=== PATIENT | female | born 1950 | race Caucasian/White ===

== ENCOUNTER 2016-03-29 02:30 | Emergency (ER) | payer SELFPAY ==
[2016-03-29] MEDS ORDERED: Triamcinolone 40 MG/ML VIAL ONE (03:12)
== END 2016-03-29 03:36 | disposition home or self-care (01) ==
LOC: BURERS 02:30
DX: J30.1 Allergic rhinitis due to pollen (principal); L29.9 Pruritus, unspecified; I10 Essential (primary) hypertension; F32.9 Major depressive disorder, single episode, unspecified
CPT/HCPCS: 96372; J3301

== ENCOUNTER 2016-04-04 14:05 | Emergency (ER) | payer SELFPAY ==
[2016-04-04] MEDS ORDERED: Ondansetron HCl/PF 4 MG/2 ML Vial ONE (14:17)
[2016-04-04] MEDS ORDERED: Pantoprazole 40 MG VIAL ONE (14:17)
[2016-04-04 14:42] LABS: ALT (SGPT) 26 U/L (0-55); AST (SGOT) 29 U/L (5-34); Alkaline Phosphatase 92 U/L (40-150); Anion Gap 15 mmol/L (10-20); BUN (Urea Nitrogen) 21 mg/dL (9.8-20.1); Bilirubin, Total 1.5 mg/dL (0.2-1.2); Calc. Creatinine Clearance 0 mL/min (70-130); Calcium 7.9 mg/dL (7.8-10.44); Carbon Dioxide 23 mmol/L (23-31); Chloride 97 mmol/L (98-107); Estimated GFR-MDRD 62; Globulin 2.8 g/dL (2.4-3.5)
[2016-04-04 14:44] LABS: Troponin I 0.025 ng/mL (< 0.028)
[2016-04-04 14:46] LABS: Band 21 % (5-11); Hematocrit 36.1 % (36.0-47.0); Mean Platelet Volume 8.9 fL (7.4-10.4); Neutrophil 68 % (42-75); Red Blood Cell (RBC) Count 4.11 mill/uL (4.20-5.40); White Blood Cell (WBC) Count 16.3 thou/uL (4.8-10.8)
[2016-04-04] MEDS ORDERED: Azithromycin 500 MG VIAL ONE (15:57)
--- NOTE | 2016-04-04 16:27 | CT ---
CT ANGIO CHEST: Date: 04/04/[address] of the chest was performed emergently for evaluation of chest pain and an elevated D-Dimer . Axial slices were acquired after giving a bolus of IV contrast. Oblique coronal reformations and c oronal reformations were done through the pulmonary arteries afterwards. FINDINGS: There is excellent opacification of the pulmonary arteries. There were no filling defects to suggest emboli. The aorta shows no aneurysm or dissection. The ascending aorta is slightly wide at 3.8 cm. The main finding on the study is multiple patchy parenchymal densities throughout the lungs bilatera lly. Some are very definitely mass-like and others are a little more infiltrative. There is also med iastinal adenopathy, particularly in the subcarinal region and the lower paratracheal areas, particu larly on the right. Metastatic disease would be a primary consideration. An unusual infection would also be in the differential with this appearance. There are no effusions. The scans went several slices into the upper abdomen. I do not see any hepatic masses in the visuali zed portions of the liver. There is some fatty infiltration of the liver. The spleen is borderline i n size at just over 13.0 cm. The left adrenal gland is a little bulbous, but I cannot definitely def ine a mass in it on this exam. IMPRESSION: Multiple patchy parenchymal densities throughout the lungs, some of which are mass-like and others w hich are infiltrative, along with mediastinal adenopathy. Metastatic disease is the primary consider ation, but an unusual infection would also be considered in the differential. Pulmonary referral is recommended. POS: HOME
--- NOTE | 2016-04-04 20:16 | RAD ---
PORTABLE CHEST 04/04/16 An AP portable film at 1411 shows a normal sized heart. There are multiple parenchymal opacities, ma ny of which are mass-like, in this patient's lungs. There are more on the right than the left. Metas tatic disease is the most likely diagnosis. Infection is less likely. No large effusions are seen. IMPRESSION: Multiple pulmonary parenchymal densities. POS: HOME
== END 2016-04-04 16:20 | disposition short-term general hospital (02) ==
LOC: BURERS 14:05
DX: J18.9 Pneumonia, unspecified organism (principal); C34.90 Malignant neoplasm of unspecified part of unspecified bronchus or lung; I10 Essential (primary) hypertension; F32.9 Major depressive disorder, single episode, unspecified
CPT/HCPCS: 71010; 71275; 80053; 82553; 83880; 84484; 85025; 85379; 87040; 87149; 87430; 93005; 96361; 96374; 96375; C9113; J0456; J2270; J2405